=== PATIENT | female | born 1965 | race African-American/Black ===

== ENCOUNTER 2018-03-02 17:04 | Emergency (ER) | payer SELFPAY ==
[2018-03-02 17:10] VITALS: BMI 32.8
--- NOTE | 2018-03-02 17:46 | DR.GENAD ---
HPI - PCP Primary Care Physician: nfd - Complaint/Symptoms Chief Complaint Doctors Comments: History as stated. Chief Complaint:: pt is c/o chest pain when she breaths in. She states she has been sick for several weeks but has not seen a Dr or been treated. She also states that her legs are hurting and swelling - Source History Provided: Patient - Mode of Arrival Mode of Arrival: Ambulatory - Timing Onset of Chief Complaint: 02/09/18 PMH - PMH Past Medical History: Yes Past Medical History: Anxiety, Depression, GERD, Hypertension Past Medical History Comment: manic bipolar Past Surgical History: Yes Surgical History: Cholecystectomy, Hysterectomy, Ortho Surgery - Family History History of Family Medical Conditions: Yes Family Medical History: Diabetes Mellitus, Cancer, [place], Coronary Artery Disease, Heart Failure, Sudden Cardiac , Hypertension - Social History Does patient currently use any type of tobacco product: No Have you used tobacco products in the last 12 months: No Type of Tobacco Use: None Does any household member use tobacco: No Alcohol Use: None Do you use any recreational Drugs:: No Lives With: Alone Lives Where: Home - infectious screening In the last 2 months have you had wt loss of >10#?: NO Have you had fever, night sweats or hemotysis?: No Have you traveled outside the country in the last 6 months?: No Isolation: Standard ROS - Review of Systems Eyes: No Symptoms Reported ENTM: No Symptoms Reported Respiratoy: No Symptoms Reported Cardiovascular: No Symptoms Reported Gastrointestinal/Abdominal: No Symptoms Reported Genitourinary: No Symptoms Reported Neurological: No Symptoms Reported Musculoskeletal: No Symptoms Reported Integumentary: No Symptoms Reported Hematologic/Lymphatic: No Symptoms Reported Endocrine: No Symptoms Reported Psychiatric: No Symptoms Reported All Other Systems: Reviewed and Negative PE - Vital Signs Vitals: Temperature 98.4 F Pulse Rate 96 Respiratory Rate 18 Blood Pressure 136/87 O2 Sat by Pulse Oximetry 96 - General Limitations: No Limitations General Appearance: Alert, In No Apparent Distress - Head Head Exam: Normal Inspection, Atraumatic - Eyes Eye exam: Normal Appearance, PERRL, EOMI - ENT ENT Exam: Normal Exam External Ear Exam: Normal External Inspection TM/Canal Exam: Bilateral Normal Nose Exam: Normal Nose Exam Mouth Exam: Normal Inspection Throat Exam: Normal Inspection - Neck Neck Exam: Normal Inspection, Full ROM - Chest Chest Inspection: Normal Inspection, Symmetric Chest Wall Rise - Respiratory Respiratory Exam: Normal Lung Sounds Bilat Respiratory Exam: Bilateral Clear to Auscultation - Cardiovascular Cardiovascular Exam: Regular Rate, Normal Rhythm - Abdominal Exam Abdominal Exam: Normal Inspection Abdominal Tenderness: negative: RUQ, RLQ, LUQ, LLQ, Epigastrium, Suprapubic, Diffuse, Mild, Moderate, Severe, Other - Extremities Extremities Exam: Normal Inspection, Full ROM - Back Back Exam: Normal Inspection, Full ROM - Neurologic Neurological Exam: Alert, Oriented X3, CN II-XII Intact - Psychiatric Psychiatric Exam: Normal Affect, Normal Mood - Skin Skin Exam: Warm, Dry, Intact Course - Education/Counseling Educated On: Treatment, Diagnosis, Prognosis ROR - Labs Reviewed Result Diagrams: 03/02/18 18:36 03/02/18 18:36 Laboratory: WBC 5.6 X10^3/uL (3.6-10.0) 03/02/18 18:36 RBC 4.81 X10^6/uL (3.5-5.4) 03/02/18 18:36 Hgb 13.1 g/dL (12.0-16.0) 03/02/18 18:36 Hct 38.9 % (36.0-47.0) 03/02/18 18:36 MCV 80.9 fL (80.0-100.0) 03/02/18 18:36 MCH 27.2 pg (27.0-34.0) 03/02/18 18:36 MCHC 33.6 g/dL (33.0-35.0) 03/02/18 18:36 RDW 15.0 % (11.6-16.5) 03/02/18 18:36 Plt Count 304 X10^3/uL (150.0-450.0) 03/02/18 18:36 MPV 8.7 fL (7.4-11.0) 03/02/18 18:36 Neut % (Auto) 54.0 % (42.0-75.0) 03/02/18 18:36 Lymph % (Auto) 27.7 % (21.0-51.0) 03/02/18 18:36 [place] % (Auto) 8.6 % (0.0-13.0) 03/02/18 18:36 Eos % (Auto) 7.8 % (0.9-2.9) H 03/02/18 18:36 Baso % (Auto) 1.9 % (0.2-1.0) H 03/02/18 18:36 Neut # (Auto) 3.0 x10^3/uL (2.2-4.8) 03/02/18 18:36 Lymph # (Auto) 1.6 X10^3/uL (1.3-2.9) 03/02/18 18:36 [place] # (Auto) 0.5 x10^3/uL (0.3-0.8) 03/02/18 18:36 Eos # (Auto) 0.4 x10^3/uL (0.0-0.2) H 03/02/18 18:36 Baso # (Auto) 0.1 X10^3/uL (0.0-0.1) 03/02/18 18:36 Absolute Nucleated RBC 0.1 /100WBC 03/02/18 18:36 Sodium 142 mmol/L (136-145) 03/02/18 18:36 Corrected Sodium 143 mmol/L (136-145) 03/02/18 18:36 Potassium 3.6 mmol/L (3.5-5.1) 03/02/18 18:36 Chloride 107 mmol/L (98-107) 03/02/18 18:36 Carbon Dioxide 29.4 mmol/L (21-32) 03/02/18 18:36 BUN 19 mg/dL (7-18) H 03/02/18 18:36 Creatinine 1.29 mg/dL (0.55-1.02) H 03/02/18 18:36 Est GFR (MDRD) Af Amer 56 (>60) L 03/02/18 18:36 Est GFR (MDRD) Non-Af 46 (>60) L 03/02/18 18:36 Glucose 125 mg/dL (65-99) H 03/02/18 18:36 Calcium 9.8 mg/dL (8.5-10.1) 03/02/18 18:36 C-Reactive Protein 8.60 mg/L (0-3.0) H 03/02/18 18:36 S. pyogenes (TEM-PCR) Not detected (NOT DETECT) 03/02/18 18:11 - XRAY XRAY Interpreted by: Radiologist (Hypoinflation without definite acute chest process) - Diagnosis Discharge Problem: Laryngitis Asthma Qualifiers: Asthma severity: mild Asthma persistence: unspecified Asthma complication type : with status asthmaticus Qualified Code(s): J45.902 - Unspecified asthma with status asthmaticus - Discharge Plan Condition: Stable - Follow ups/Referrals Follow ups/Referrals: NFD,None [Primary Care Provider] - 3 days - Instructions
--- NOTE | 2018-03-02 18:39 | RAD ---
Chest, one view Indication: Asthmatic Comparison: None Findings: Heart size is normal for AP technique and low lung volumes. Lungs are hypoinflated but brandyn sly clear. No significant pleural effusion or pneumothorax identified. There is no acute osseous abno rmality. Impression: Hypoinflation without definite acute chest process. Reported By:
[2018-03-02 18:49] LABS: BASOPHILS # (AUTO) 0.1 X10^3/uL (0.0-0.1); BASOPHILS % (AUTO) 1.9 % (0.2-1.0); EOSINOPHILS # (AUTO) 0.4 x10^3/uL (0.0-0.2); EOSINOPHILS % (AUTO) 7.8 % (0.9-2.9); HEMATOCRIT 38.9 % (36.0-47.0); HEMOGLOBIN 13.1 g/dL (12.0-16.0); LYMPHOCYTES # (AUTO) 1.6 X10^3/uL (1.3-2.9); LYMPHOCYTES % (AUTO) 27.7 % (21.0-51.0); MEAN CORPUSCULAR HEMOGLOBIN 27.2 pg (27.0-34.0); MEAN CORPUSCULAR HGB CONC 33.6 g/dL (33.0-35.0); MEAN CORPUSCULAR VOLUME 80.9 fL (80.0-100.0); MEAN PLATELET VOLUME 8.7 fL (7.4-11.0); MONOCYTES # (AUTO) 0.5 x10^3/uL (0.3-0.8); MONOCYTES % (AUTO) 8.6 % (0.0-13.0); PLATELET COUNT 304 X10^3/uL (150.0-450.0); RED BLOOD COUNT 4.81 X10^6/uL (3.5-5.4); WHITE BLOOD COUNT 5.6 X10^3/uL (3.6-10.0)
[2018-03-02 18:56] LABS: C-REACTIVE PROTEIN 8.6 mg/L (0-3.0); CALCIUM 9.8 mg/dL (8.5-10.1); CARBON DIOXIDE 29.4 mmol/L (21-32); CREATININE 1.29 mg/dL (0.55-1.02)
[2018-03-02 19:20] VITALS: BP 132/82
== END 2018-03-02 19:20 | disposition home or self-care (01) ==
LOC: ER 17:17
DX: J45.902 Unspecified asthma with status asthmaticus (principal); J04.0 Acute laryngitis
CPT/HCPCS: 36415; 71045; 80048; 85025; 86140; 87651; 99282